=== PATIENT | male | born 1990 | race Caucasian/White ===

== ENCOUNTER → 2017-09-03 | Outpatient (CLI) | payer OTHER ==
--- NOTE | 2017-09-03 14:36 | ECHOCARDIOGRAM REPORT ---
*NOTICE TO RECEIVING [employer] AGENCY This information is strictly Confidential and protected under [place] law. [place] law prohibits you from making any further disclosure of this information unless further disclosure is expressly permitted by the written consent of the person to whom it pertains or is authorized by law. A general authorization for the release of medical or other information is not sufficient for this purpose. Hospital accepts no responsibility if the information is made available to any other person, INCLUDING THE PATIENT. Interpretation Summary * Name: SPIKE MORLEY Study Date: 09/03/2017 12:46 PM BP: 144/74 mmHg * [facility] HR: 102 * : 1990 (M/d/yyyy) Gender: Male Height: 61 in * Age: 26 yrs Ethnicity: [place] Weight: 140 lb * Ordering Physician: Elvia Ch * Referring Physician: Elvia Ch * Performed By: Mareille Olmedo RDCS * * Reason For Study: Valvular Heart Disease * BSA: 1.6 m2 * Normal transthoracic echocardiogram. * -- Conclusions -- * Left ventricular systolic function is normal. * Normal diastolic function * Right ventricular systolic pressure is normal. Procedure Details * A complete two-dimensional transthoracic echocardiogram was performed (2D, M-mode, Doppler and color flow Doppler). Left Ventricle * The left ventricle is normal in size. * There is normal left ventricular wall thickness. * Ejection Fraction = 60-65%. * Left ventricular systolic function is normal. * Normal diastolic function * The left ventricular wall motion is normal. Right Ventricle * The right ventricle is normal size. * The right ventricular systolic function is normal as assessed by tricuspid annular plane systolic excursion (TAPSE) (normal >1.5 cm). Atria * The left atrial size is normal. * Right atrial size is normal. Mitral Valve * The mitral valve anatomy is normal. * Significant mitral regurgitation is absent. Tricuspid Valve * The tricuspid valve is not well visualized, but is grossly normal. * There is trace tricuspid regurgitation. * Right ventricular systolic pressure is normal. Aortic Valve * The aortic valve is normal in structure and function. * The aortic valve is trileaflet. * No hemodynamically significant valvular aortic stenosis. * There is no significant aortic regurgitation. Pulmonic Valve * The pulmonic valve is not well visualized. Great Vessels * The aortic root is normal size. Pericardium/Pleural * There is no pericardial effusion. MMode 2D Measurements and Calculations IVSd 0.79 cm IVSs 1.2 cm LVIDd 4.6 cm LVIDs 2.9 cm LVPWd 0.88 cm LVPWs 1.5 cm IVS/LVPW 0.90 FS 36.1 % EDV(Teich) 95.0 ml ESV(Teich) 32.5 ml EF(Teich) 65.8 % EDV(cubed) 94.3 ml ESV(cubed) 24.7 ml EF(cubed) 73.8 % % IVS thick 54.6 % % LVPW thick 70.7 % LV mass(C)d 121.9 grams LV mass(C)dI 75.1 grams/m\S\2 LV mass(C)s 128.1 grams LV mass(C)sI 78.9 grams/m\S\2 SV(Teich) 62.5 ml SI(Teich) 38.5 ml/m\S\2 SV(cubed) 69.7 ml SI(cubed) 42.9 ml/m\S\2 Ao root diam 3.1 cm Ao root area 7.6 cm\S\2 ACS 2.4 cm LA dimension 3.1 cm LA/Ao 1.0 LVAd ap4 29.1 cm\S\2 LVLd ap4 8.8 cm EDV(MOD-sp4) 80.5 ml EDV(sp4-el) 81.0 ml LVAs ap4 16.7 cm\S\2 LVLs ap4 6.8 cm ESV(MOD-sp4) 35.1 ml ESV(sp4-el) 34.7 ml EF(MOD-sp4) 56.3 % EF(sp4-el) 57.1 % LVAd ap2 21.7 cm\S\2 LVLd ap2 7.1 cm EDV(MOD-sp2) 58.3 ml EDV(sp2-el) 56.8 ml LVAs ap2 13.0 cm\S\2 LVLs ap2 6.1 cm ESV(MOD-sp2) 25.0 ml ESV(sp2-el) 23.5 ml EF(MOD-sp2) 57.1 % EF(sp2-el) 58.6 % LVLd %diff -25.38 % EDV(MOD-bp) 75.6 ml LVLs %diff -11.19 % ESV(MOD-bp) 31.0 ml EF(MOD-bp) 59.1 % SV(MOD-sp4) 45.3 ml SI(MOD-sp4) 27.9 ml/m\S\2 SV(MOD-sp2) 33.3 ml SI(MOD-sp2) 20.5 ml/m\S\2 SV(MOD-bp) 44.7 ml SI(MOD-bp) 27.5 ml/m\S\2 SV(sp4-el) 46.3 ml SI(sp4-el) 28.5 ml/m\S\2 SV(sp2-el) 33.3 ml SI(sp2-el) 20.5 ml/m\S\2 Doppler Measurements and Calculations MV E max sourav 100.8 cm/sec MV A max sourav 68.5 cm/sec MV E/A 1.5 MV dec time 0.23 sec Ao V2 max 110.4 cm/sec Ao max PG 4.9 mmHg Ao max PG (full) 0.29 mmHg LV V1 max PG 4.6 mmHg LV V1 max 107.1 cm/sec PA V2 max 118.2 cm/sec PA max PG 5.6 mmHg TR max sourav 256.2 cm/sec
== END | disposition home or self-care (01) ==
LOC: C.CPL 12:42
PROVIDERS: ATTEND Registered Nurse
DX: I05.9 Rheumatic mitral valve disease, unspecified (principal)